=== PATIENT | male | born 1935 | race Caucasian/White ===

== ENCOUNTER 2022-03-06 13:42 | Inpatient (IN) ==
[2022-03-06] MEDS ORDERED: ASPIRIN 325 MG TABLET PO STA (14:15)
[2022-03-06] MEDS ORDERED: DILTIAZEM 25 MG/5 ML VIAL IV STA (14:16)
[2022-03-06 14:41] LABS: INR 1.1
[2022-03-06 14:43] LABS: Basophils % 0.3 % (0.0-0.8); Eosinophils % 0.3 % (0.00-10.9); Hematocrit 48.5 VOL% (42.0-52.0); Immature Granulocytes % 0.5 %; Immature Granulocytes Absolute 0.07 #; Lymphocytes # 2.2 10*3/uL (1.4-4.0); Lymphocytes % 16.8 % (21.2-54.2); Mean Corpuscular Volume 94.7 FL (87-102); Mean Platelet Volume 10.8 FL (9.6-12.0); Monocytes # 0.8 10*3/uL (0.11-0.8); Neutrophils % 76.1 % (38.7-73.9); Platelet Count 302 T/CUMM (130-400); Red Blood Count 5.12 MC/CUMM (3.8-5.5); Red Cell Distribution Width 13.5 % (9.3-17.3); White Blood Count 12.9 T/CUMM (4-12)
[2022-03-06] MEDS ORDERED: SODIUM CHLORIDE 0.9% 500 ML IV STA (14:47)
[2022-03-06 14:51] LABS: Albumin 3.3 G/DL (3.4-5.0); Bilirubin,Total 0.8 MG/DL (0.20-1.00); Calcium 9.9 MG/DL (8.5-10.1); Osmolality,Calculated 289.7 MOS/KG (273-304); Potassium 5.2 MMOL/L (3.5-5.1); Total Protein 6.9 G/DL (6.4-8.2)
[2022-03-06] MEDS: DILTIAZEM INJ 100 MG in SODIUM CHLORIDE 0.9% 100 ML IV SCH (15:13)
[2022-03-06] MEDS ORDERED: cefTRIAXone 1,000 MG in SODIUM CHLORIDE 0.9% 100 ML IV STA (15:16)
[2022-03-06] MEDS ORDERED: AZITHROMYCIN INJ 500 MG in SODIUM CHLORIDE 0.9% 250 ML IV STA (15:16)
[2022-03-06] MEDS ORDERED: ONDANSETRON 4 MG/2 ML VIAL IV PRN (15:20)
[2022-03-06] MEDS ORDERED: ACETAMINOPHEN 325 MG TABLET PO PRN (15:20)
[2022-03-06 15:41] LABS: Albumin 3.2 G/DL (3.4-5.0); Bilirubin,Total 0.7 MG/DL (0.20-1.00); Calcium 9.3 MG/DL (8.5-10.1); Osmolality,Calculated 293.4 MOS/KG (273-304); Potassium 4.8 MMOL/L (3.5-5.1)
[2022-03-06] MEDS: ENOXAPARIN 40 MG/0.4 ML SYRINGE SUBCUT SCH (16:53)
[2022-03-06] MEDS: SODIUM CHLORIDE 0.9% 1,000 ML IV SCH (16:57)
[2022-03-06] MEDS ORDERED: METOPROLOL TARTRATE 25 MG TABLET PO STA (17:06)
[2022-03-06 18:49] LABS: Free T4 (Free Thyroxine) 1.13 NG/DL (0.76-1.46); Thyroid Stimulating Hormone 1.89 uIU/ml (0.358-3.74)
[2022-03-06] MEDS: INSULIN LISPRO 100 UNIT/ML SUBCUT SCH (22:10)
[2022-03-06] MEDS: carvediloL 25 MG TABLET PO SCH (22:10)
[2022-03-06] MEDS: DOCUSATE SODIUM 100 MG CAPSULE PO SCH (22:10)
[2022-03-06] MEDS: BIMATOPROST 0.01% OPH SOLN 2.5 ML BOTTLE RIGHT EYE SCH (22:10)
[2022-03-06] MEDS: BRIMONIDINE/TIMOLOL OPH SOLN 5 ML BOTTLE RIGHT EYE SCH (22:10)
[2022-03-07 05:44] LABS: Basophils % 0.3 % (0.0-0.8); Eosinophils # 0.2 10*3/uL (0.0-0.87); Eosinophils % 1.6 % (0.00-10.9); Hematocrit 45.1 VOL% (42.0-52.0); Hemoglobin 14.7 GM/DL (14.0-18.0); Immature Granulocytes % 0.4 %; Immature Granulocytes Absolute 0.04 #; Lymphocytes # 3.3 10*3/uL (1.4-4.0); Lymphocytes % 35.2 % (21.2-54.2); Mean Corpuscular HGB Conc 32.6 GM/DL (32-36); Mean Corpuscular Volume 94.2 FL (87-102); Mean Platelet Volume 11.1 FL (9.6-12.0); Monocytes # 0.8 10*3/uL (0.11-0.8); Neutrophils % 54.5 % (38.7-73.9); Platelet Count 270 T/CUMM (130-400); Red Blood Count 4.79 MC/CUMM (3.8-5.5); Red Cell Distribution Width 13.4 % (9.3-17.3); White Blood Count 9.5 T/CUMM (4-12)
[2022-03-07 06:23] LABS: Calcium 8.6 MG/DL (8.5-10.1); Osmolality,Calculated 296.7 MOS/KG (273-304); Potassium 4.1 MMOL/L (3.5-5.1)
[2022-03-07 06:24] LABS: High Sensitive Troponin I* 252.1 ng/L (0-78)
[2022-03-07] MEDS: INSULIN LISPRO 100 UNIT/ML SUBCUT SCH ×4 (08:05→20:54)
[2022-03-07] MEDS: LOSARTAN 25 MG TABLET PO SCH (08:45)
[2022-03-07] MEDS: carvediloL 25 MG TABLET PO SCH (08:45)
[2022-03-07] MEDS: DOCUSATE SODIUM 100 MG CAPSULE PO SCH ×2 (08:45→20:47)
[2022-03-07] MEDS: DIGOXIN 0.125 MG TABLET PO SCH (08:46)
[2022-03-07] MEDS: MAGNESIUM CHLORIDE 64 MG TABLET PO SCH (08:47)
[2022-03-07] MEDS: ASPIRIN EC 81 MG TABLET PO SCH (08:47)
[2022-03-07] MEDS: PANTOPRAZOLE 40 MG TABLET PO SCH (08:47)
[2022-03-07] MEDS: DAPAGLIFLOZIN 5 MG TABLET PO SCH (08:47)
[2022-03-07] MEDS: BRIMONIDINE/TIMOLOL OPH SOLN 5 ML BOTTLE RIGHT EYE SCH ×2 (08:49→20:48)
[2022-03-07] MEDS: cefTRIAXone 1,000 MG in SODIUM CHLORIDE 0.9% 100 ML IV SCH (08:50)
[2022-03-07] MEDS: DUTASTERIDE 0.5 MG CAPSULE PO SCH (08:55)
[2022-03-07] MEDS: BIMATOPROST 0.01% OPH SOLN 2.5 ML BOTTLE RIGHT EYE SCH ×2 (09:34→20:48)
[2022-03-07] MEDS: DILTIAZEM 60 MG TABLET PO SCH ×3 (12:24→20:47)
[2022-03-07] MEDS: DILTIAZEM INJ 100 MG in SODIUM CHLORIDE 0.9% 100 ML IV SCH (14:53)
[2022-03-07] MEDS: ENOXAPARIN 40 MG/0.4 ML SYRINGE SUBCUT SCH (15:05)
[2022-03-07] MEDS: AZITHROMYCIN INJ 250 MG in SODIUM CHLORIDE 0.9% 250 ML IV SCH (15:06)
[2022-03-07] MEDS: SODIUM CHLORIDE 0.9% 1,000 ML IV SCH (16:36)
[2022-03-07] MEDS: METOPROLOL TARTRATE 25 MG TABLET PO SCH (20:47)
[2022-03-07] MEDS: ASCORBIC ACID 500 MG TABLET PO SCH (20:47)
[2022-03-07] MEDS: BRINZOLAMIDE 1% OPH SUSP 10 ML BOTTLE BOTH EYES SCH (22:21)
[2022-03-08 06:08] LABS: Albumin 2.9 G/DL (3.4-5.0); Bilirubin,Total 0.6 MG/DL (0.20-1.00); Calcium 9.1 MG/DL (8.5-10.1); Osmolality,Calculated 295.7 MOS/KG (273-304); Potassium 4.6 MMOL/L (3.5-5.1); Total Protein 5.6 G/DL (6.4-8.2)
[2022-03-08] MEDS: SODIUM CHLORIDE 0.9% 1,000 ML IV SCH (06:32)
[2022-03-08] MEDS: INSULIN LISPRO 100 UNIT/ML SUBCUT SCH ×4 (10:02→22:04)
[2022-03-08] MEDS: DILTIAZEM 60 MG TABLET PO SCH (10:04)
[2022-03-08] MEDS: METOPROLOL TARTRATE 25 MG TABLET PO SCH (10:04)
[2022-03-08] MEDS: METOPROLOL TARTRATE 50 MG TABLET PO SCH ×2 (10:10→22:06)
[2022-03-08] MEDS: DUTASTERIDE 0.5 MG CAPSULE PO SCH (10:10)
[2022-03-08] MEDS: DOCUSATE SODIUM 100 MG CAPSULE PO SCH ×2 (10:10→22:05)
[2022-03-08] MEDS: MAGNESIUM CHLORIDE 64 MG TABLET PO SCH (10:11)
[2022-03-08] MEDS: PANTOPRAZOLE 40 MG TABLET PO SCH (10:11)
[2022-03-08] MEDS: LOSARTAN 25 MG TABLET PO SCH (10:11)
[2022-03-08] MEDS: DIGOXIN 0.125 MG TABLET PO SCH (10:11)
[2022-03-08] MEDS: ASPIRIN EC 81 MG TABLET PO SCH (10:12)
[2022-03-08] MEDS: ASCORBIC ACID 500 MG TABLET PO SCH ×2 (10:12→22:05)
[2022-03-08] MEDS: cefTRIAXone 1,000 MG in SODIUM CHLORIDE 0.9% 100 ML IV SCH (10:14)
[2022-03-08] MEDS: BRINZOLAMIDE 1% OPH SUSP 10 ML BOTTLE BOTH EYES SCH ×2 (10:15→22:07)
[2022-03-08] MEDS: BRIMONIDINE/TIMOLOL OPH SOLN 5 ML BOTTLE RIGHT EYE SCH ×2 (10:16→22:08)
[2022-03-08] MEDS: DAPAGLIFLOZIN 5 MG TABLET PO SCH (10:18)
[2022-03-08] MEDS: BIMATOPROST 0.01% OPH SOLN 2.5 ML BOTTLE RIGHT EYE SCH ×2 (10:20→22:08)
[2022-03-08] MEDS: DILTIAZEM CD 120 MG CAPSULE PO SCH ×2 (12:30→22:06)
[2022-03-08] MEDS ORDERED: DILTIAZEM 90 MG TABLET PO SCH (13:00)
[2022-03-08] MEDS: DILTIAZEM INJ 100 MG in SODIUM CHLORIDE 0.9% 100 ML IV SCH (14:10)
[2022-03-08] MEDS: POLYETHYLENE GLYCOL POWDER 17 GM PACK PO PRN (14:25)
[2022-03-08] MEDS: AZITHROMYCIN INJ 250 MG in SODIUM CHLORIDE 0.9% 250 ML IV SCH (16:52)
[2022-03-08] MEDS: APIXABAN 5 MG TABLET PO SCH (22:05)
[2022-03-09] MEDS ORDERED: FUROSEMIDE 20 MG/2 ML VIAL IV ONE (00:09)
[2022-03-09] MEDS ORDERED: ALPRAZolam 0.25 MG TABLET PO ONE (00:11)
[2022-03-09 06:26] LABS: Calcium 8.9 MG/DL (8.5-10.1)
[2022-03-09] MEDS ORDERED: FLUCONAZOLE 150 MG TABLET PO ONE (07:51)
[2022-03-09 07:54] LABS: Basophils % 0.2 % (0.0-0.8); Eosinophils # 0.1 10*3/uL (0.0-0.87); Eosinophils % 0.4 % (0.00-10.9); Hematocrit 46.5 VOL% (42.0-52.0); Hemoglobin 15.3 GM/DL (14.0-18.0); Immature Granulocytes % 0.7 %; Immature Granulocytes Absolute 0.09 #; Lymphocytes # 1.8 10*3/uL (1.4-4.0); Lymphocytes % 13.4 % (21.2-54.2); Mean Corpuscular HGB Conc 32.9 GM/DL (32-36); Mean Corpuscular Volume 94.5 FL (87-102); Monocytes % 7.6 % (1.7-12.7); Neutrophils % 77.7 % (38.7-73.9); Platelet Count 282 T/CUMM (130-400); Red Blood Count 4.92 MC/CUMM (3.8-5.5); Red Cell Distribution Width 13.5 % (9.3-17.3); White Blood Count 13.5 T/CUMM (4-12)
[2022-03-09 08:24] LABS: Potassium 4.1 MMOL/L (3.5-5.1)
[2022-03-09] MEDS: POLYETHYLENE GLYCOL POWDER 17 GM PACK PO PRN (09:48)
[2022-03-09] MEDS: APIXABAN 5 MG TABLET PO SCH (09:50)
[2022-03-09] MEDS: DILTIAZEM CD 120 MG CAPSULE PO SCH (09:50)
[2022-03-09] MEDS: ASCORBIC ACID 500 MG TABLET PO SCH (09:50)
[2022-03-09] MEDS: DIGOXIN 0.125 MG TABLET PO SCH (09:51)
[2022-03-09] MEDS: LOSARTAN 25 MG TABLET PO SCH (09:52)
[2022-03-09] MEDS: PANTOPRAZOLE 40 MG TABLET PO SCH (09:52)
[2022-03-09] MEDS: DOCUSATE SODIUM 100 MG CAPSULE PO SCH (09:52)
[2022-03-09] MEDS: METOPROLOL TARTRATE 50 MG TABLET PO SCH (09:52)
[2022-03-09] MEDS: ASPIRIN EC 81 MG TABLET PO SCH (09:53)
[2022-03-09] MEDS: DUTASTERIDE 0.5 MG CAPSULE PO SCH (09:53)
[2022-03-09] MEDS: MAGNESIUM CHLORIDE 64 MG TABLET PO SCH (09:53)
[2022-03-09] MEDS: DAPAGLIFLOZIN 5 MG TABLET PO SCH (09:53)
[2022-03-09] MEDS: INSULIN LISPRO 100 UNIT/ML SUBCUT SCH (09:54)
[2022-03-09] MEDS: BRIMONIDINE/TIMOLOL OPH SOLN 5 ML BOTTLE RIGHT EYE SCH (09:54)
[2022-03-09] MEDS: BIMATOPROST 0.01% OPH SOLN 2.5 ML BOTTLE RIGHT EYE SCH (09:54)
[2022-03-09] MEDS: BRINZOLAMIDE 1% OPH SUSP 10 ML BOTTLE BOTH EYES SCH (09:56)
[2022-03-09] MEDS: cefTRIAXone 1,000 MG in SODIUM CHLORIDE 0.9% 100 ML IV SCH (09:59)
[2022-03-09 12:10] VITALS: BP 126/64
[2022-03-09] MEDS ORDERED: MICONAZOLE 2% CREAM 57 GM TUBE TOP SCH (21:00)
== END 2022-03-09 14:03 | disposition home or self-care (01) | DRG 280 ==
LOC: N.ED 13:42 → N.EDINP 15:20 → N.TELEN 18:32
PROVIDERS: ADMIT Family Medicine; ATTEND Family Medicine

== ENCOUNTER 2022-03-12 14:12 | Inpatient (IN) ==
[2022-03-12] MEDS ORDERED: ACETAMINOPHEN 325 MG TABLET PO PRN (14:21)
[2022-03-12] MEDS ORDERED: PROMETHAZINE 25 MG/1 ML VIAL IM PRN (14:22)
[2022-03-12] MEDS ORDERED: METOCLOPRAMIDE 10 MG/2 ML VIAL IV PRN (14:30)
[2022-03-12] MEDS: INSULIN LISPRO 100 UNIT/ML SUBCUT SCH ×2 (16:01→21:30)
[2022-03-12] MEDS: SODIUM CHLORIDE 0.9% 1,000 ML IV SCH (17:00)
[2022-03-12] MEDS ORDERED: hydrALAZINE 20 MG/1 ML VIAL IV PRN (18:15)
[2022-03-12] MEDS ORDERED: DOCUSATE SODIUM 100 MG CAPSULE PO SCH (21:00)
[2022-03-12] MEDS: BRIMONIDINE/TIMOLOL OPH SOLN 5 ML BOTTLE BOTH EYES SCH (21:28)
[2022-03-12] MEDS: MICONAZOLE 2% CREAM 57 GM TUBE TOP SCH (21:28)
[2022-03-12] MEDS: BRINZOLAMIDE 1% OPH SUSP 10 ML BOTTLE BOTH EYES SCH (21:28)
[2022-03-12] MEDS: BIMATOPROST 0.01% OPH SOLN 2.5 ML BOTTLE BOTH EYES SCH (21:30)
[2022-03-12] MEDS: LEVOFLOXACIN INJ 500 MG/100 ML PREMIX IV SCH (21:36)
[2022-03-12] MEDS ORDERED: TEMAZEPAM 7.5 MG CAPSULE PO PRN (22:49)
[2022-03-12] MEDS ORDERED: HYDROmorphone 1 MG/1 ML SYRINGE IV PRN (22:50)
[2022-03-13 05:30] LABS: Basophils % 0.3 % (0.0-0.8); Eosinophils # 0.1 10*3/uL (0.0-0.87); Eosinophils % 0.5 % (0.00-10.9); Hematocrit 49.4 VOL% (42.0-52.0); Hemoglobin 16.7 GM/DL (14.0-18.0); Immature Granulocytes % 0.4 %; Immature Granulocytes Absolute 0.05 #; Lymphocytes # 2.1 10*3/uL (1.4-4.0); Lymphocytes % 15.7 % (21.2-54.2); Mean Corpuscular HGB Conc 33.8 GM/DL (32-36); Mean Corpuscular Volume 93.6 FL (87-102); Monocytes # 0.9 10*3/uL (0.11-0.8); Monocytes % 6.9 % (1.7-12.7); Neutrophils % 76.2 % (38.7-73.9); Platelet Count 312 T/CUMM (130-400); Red Blood Count 5.28 MC/CUMM (3.8-5.5); Red Cell Distribution Width 13.2 % (9.3-17.3); White Blood Count 13.5 T/CUMM (4-12)
[2022-03-13] MEDS ORDERED: DILTIAZEM 50 MG/10 ML VIAL IV ONE (05:40)
[2022-03-13] MEDS ORDERED: DIGOXIN 0.5 MG/2 ML AMP IV ONE ×3 (05:43→09:07)
[2022-03-13 05:52] LABS: Albumin 2.8 G/DL (3.4-5.0); Bilirubin,Total 0.8 MG/DL (0.20-1.00); Calcium 10.1 MG/DL (8.5-10.1); Osmolality,Calculated 283.4 MOS/KG (273-304); Potassium 4.1 MMOL/L (3.5-5.1); Total Protein 6.9 G/DL (6.4-8.2)
[2022-03-13] MEDS ORDERED: DILTIAZEM INJ 100 MG in SODIUM CHLORIDE 0.9% 100 ML IV SCH (06:00)
[2022-03-13] MEDS: SODIUM CHLORIDE 0.9% 1,000 ML IV SCH (06:32)
[2022-03-13] MEDS: DILTIAZEM INJ 100 MG in SODIUM CHLORIDE 0.9% 100 ML IV SCH ×2 (06:37→12:01)
[2022-03-13] MEDS: INSULIN LISPRO 100 UNIT/ML SUBCUT SCH ×4 (09:03→20:45)
[2022-03-13] MEDS ORDERED: METOPROLOL TARTRATE 5 MG/5 ML VIAL IV ONE (09:08)
[2022-03-13] MEDS: DIGOXIN 0.5 MG/2 ML AMP IV SCH (09:30)
[2022-03-13] MEDS: PANTOPRAZOLE 40 MG VIAL IV SCH (09:42)
[2022-03-13] MEDS ORDERED: KETAMINE 500 MG/10 ML VIAL ONE (10:18)
[2022-03-13] MEDS ORDERED: BUPIVACAINE 0.5% 50 ML VIAL ONE (10:18)
[2022-03-13] MEDS ORDERED: LIDOCAINE 1% 5 ML VIAL ONE (10:18)
[2022-03-13] MEDS ORDERED: SUCCINYLCHOLINE 200 MG/10 ML VIAL ONE (10:29)
[2022-03-13] MEDS ORDERED: LIDOCAINE 2% 5 ML VIAL ONE (10:29)
[2022-03-13] MEDS ORDERED: propofoL 200 MG/20 ML VIAL IV ONE (10:29)
[2022-03-13] MEDS ORDERED: fentaNYL 100 MCG/2 ML VIAL ONE (10:29)
[2022-03-13] MEDS ORDERED: ROCURONIUM 50 MG/5 ML VIAL IV ONE (10:29)
[2022-03-13] MEDS ORDERED: ONDANSETRON 4 MG/2 ML VIAL ONE (10:33)
[2022-03-13] MEDS ORDERED: SEVOFLURANE 1 UNIT/15 MINUTE INH ONE (10:33)
[2022-03-13] MEDS ORDERED: SUGAMMADEX 200 MG/2 ML VIAL IV ONE ×2 (11:32→11:40)
[2022-03-13] MEDS ORDERED: ALBUTEROL/IPRATROPIUM 3 ML NEB RESP TX PRN (11:44)
[2022-03-13] MEDS ORDERED: ONDANSETRON 4 MG/2 ML VIAL IV PRN (11:44)
[2022-03-13] MEDS ORDERED: HYDROmorphone 1 MG/1 ML SYRINGE IV PRN (11:44)
[2022-03-13] MEDS: LACTATED RINGERS 1,000 ML IV SCH ×2 (12:00→20:55)
[2022-03-13 12:18] LABS: Bilirubin,Urine Negative (Negative); Blood, Urine Negative (Negative); Glucose,Urine (UA) >=500 mg/dL (Negative); Ketones,Urine 80 mg/dL (Negative); Mucus,Urine Few /LPF (Occasional); Nitrite,Urine Negative (Negative); Protein,Urine Negative (Negative); RBC,Urine 1 /HPF (0-4); Urine Appearance Slightly Hazy (Clear); Urine Color Yellow (Yellow); Urine Specific Gravity 1.038 (1.001-1.035); Urine Urobilinogen < 2.0 eU/dL (<2.0)
[2022-03-13] MEDS: BRIMONIDINE/TIMOLOL OPH SOLN 5 ML BOTTLE BOTH EYES SCH ×2 (15:55→20:55)
[2022-03-13] MEDS: BRINZOLAMIDE 1% OPH SUSP 10 ML BOTTLE BOTH EYES SCH ×2 (15:55→20:55)
[2022-03-13] MEDS: BIMATOPROST 0.01% OPH SOLN 2.5 ML BOTTLE BOTH EYES SCH (20:55)
[2022-03-13] MEDS: MICONAZOLE 2% CREAM 57 GM TUBE TOP SCH (20:55)
[2022-03-13] MEDS: LEVOFLOXACIN INJ 500 MG/100 ML PREMIX IV SCH (20:55)
[2022-03-13] MEDS: HYDROmorphone 1 MG/1 ML SYRINGE IV PRN (21:05)
[2022-03-14] MEDS: HYDROmorphone 1 MG/1 ML SYRINGE IV PRN ×3 (01:25→23:30)
[2022-03-14] MEDS: DILTIAZEM INJ 100 MG in SODIUM CHLORIDE 0.9% 100 ML IV SCH ×3 (05:38→23:31)
[2022-03-14 06:24] LABS: Basophils % 0.2 % (0.0-0.8); Eosinophils # 0.4 10*3/uL (0.0-0.87); Eosinophils % 3.1 % (0.00-10.9); Hematocrit 48.3 VOL% (42.0-52.0); Hemoglobin 15.6 GM/DL (14.0-18.0); Immature Granulocytes % 0.6 %; Immature Granulocytes Absolute 0.08 #; Lymphocytes # 2.2 10*3/uL (1.4-4.0); Lymphocytes % 17.2 % (21.2-54.2); Mean Corpuscular HGB Conc 32.3 GM/DL (32-36); Mean Platelet Volume 10.8 FL (9.6-12.0); Monocytes % 8.1 % (1.7-12.7); Neutrophils % 70.8 % (38.7-73.9); Platelet Count 314 T/CUMM (130-400); Red Blood Count 4.98 MC/CUMM (3.8-5.5); Red Cell Distribution Width 13.2 % (9.3-17.3); White Blood Count 12.7 T/CUMM (4-12)
[2022-03-14 06:55] LABS: Calcium 9.2 MG/DL (8.5-10.1); Potassium 4.3 MMOL/L (3.5-5.1)
[2022-03-14] MEDS: PANTOPRAZOLE 40 MG VIAL IV SCH (08:51)
[2022-03-14] MEDS: DIGOXIN 0.5 MG/2 ML AMP IV SCH (08:52)
[2022-03-14] MEDS: BRINZOLAMIDE 1% OPH SUSP 10 ML BOTTLE BOTH EYES SCH ×2 (08:54→22:03)
[2022-03-14] MEDS: BRIMONIDINE/TIMOLOL OPH SOLN 5 ML BOTTLE BOTH EYES SCH ×2 (08:55→22:04)
[2022-03-14] MEDS: INSULIN LISPRO 100 UNIT/ML SUBCUT SCH ×4 (08:57→21:52)
[2022-03-14] MEDS: METOPROLOL TARTRATE 25 MG TABLET PO SCH ×2 (12:05→21:52)
[2022-03-14] MEDS: DILTIAZEM 30 MG TABLET PO SCH ×4 (12:05→21:51)
[2022-03-14] MEDS: LACTATED RINGERS 1,000 ML IV SCH ×3 (14:43→23:32)
[2022-03-14] MEDS: LEVOFLOXACIN INJ 500 MG/100 ML PREMIX IV SCH (21:56)
[2022-03-14] MEDS: MICONAZOLE 2% CREAM 57 GM TUBE TOP SCH (22:04)
[2022-03-14] MEDS: BIMATOPROST 0.01% OPH SOLN 2.5 ML BOTTLE BOTH EYES SCH (22:07)
[2022-03-15 04:21] LABS: Basophils % 0.4 % (0.0-0.8); Eosinophils # 0.3 10*3/uL (0.0-0.87); Eosinophils % 2.6 % (0.00-10.9); Hematocrit 46.5 VOL% (42.0-52.0); Immature Granulocytes % 0.5 %; Immature Granulocytes Absolute 0.05 #; Lymphocytes # 1.7 10*3/uL (1.4-4.0); Lymphocytes % 16.1 % (21.2-54.2); Mean Corpuscular HGB Conc 32.3 GM/DL (32-36); Mean Corpuscular Volume 94.9 FL (87-102); Mean Platelet Volume 11.3 FL (9.6-12.0); Monocytes # 0.9 10*3/uL (0.11-0.8); Monocytes % 8.4 % (1.7-12.7); Platelet Count 284 T/CUMM (130-400); Red Cell Distribution Width 12.8 % (9.3-17.3); White Blood Count 10.5 T/CUMM (4-12)
[2022-03-15 05:04] LABS: Calcium 8.9 MG/DL (8.5-10.1); Osmolality,Calculated 282.4 MOS/KG (273-304); Potassium 4.2 MMOL/L (3.5-5.1)
[2022-03-15] MEDS: DILTIAZEM INJ 100 MG in SODIUM CHLORIDE 0.9% 100 ML IV SCH ×3 (06:37→23:20)
[2022-03-15] MEDS: LACTATED RINGERS 1,000 ML IV SCH ×3 (06:46→23:20)
[2022-03-15] MEDS: INSULIN LISPRO 100 UNIT/ML SUBCUT SCH ×4 (08:48→21:15)
[2022-03-15] MEDS: PANTOPRAZOLE 40 MG VIAL IV SCH (08:49)
[2022-03-15] MEDS: DILTIAZEM 30 MG TABLET PO SCH (08:49)
[2022-03-15] MEDS: METOPROLOL TARTRATE 25 MG TABLET PO SCH (08:50)
[2022-03-15] MEDS: DIGOXIN 0.5 MG/2 ML AMP IV SCH (08:52)
[2022-03-15] MEDS: BRIMONIDINE/TIMOLOL OPH SOLN 5 ML BOTTLE BOTH EYES SCH ×2 (09:06→20:52)
[2022-03-15] MEDS: BRINZOLAMIDE 1% OPH SUSP 10 ML BOTTLE BOTH EYES SCH ×2 (09:06→20:51)
[2022-03-15] MEDS ORDERED: METOPROLOL TARTRATE 25 MG TABLET PO ONE (10:12)
[2022-03-15] MEDS: APIXABAN 5 MG TABLET PO SCH ×2 (11:51→21:16)
[2022-03-15] MEDS: MICONAZOLE 2% CREAM 57 GM TUBE TOP SCH (20:52)
[2022-03-15] MEDS: BIMATOPROST 0.01% OPH SOLN 2.5 ML BOTTLE BOTH EYES SCH (21:05)
[2022-03-15] MEDS: HYDROmorphone 1 MG/1 ML SYRINGE IV PRN (21:15)
[2022-03-15] MEDS: METOPROLOL TARTRATE 50 MG TABLET PO SCH (21:16)
[2022-03-15] MEDS: DILTIAZEM CD 120 MG CAPSULE PO SCH (21:16)
[2022-03-15] MEDS: LEVOFLOXACIN INJ 500 MG/100 ML PREMIX IV SCH (21:16)
[2022-03-16] MEDS: DILTIAZEM INJ 100 MG in SODIUM CHLORIDE 0.9% 100 ML IV SCH ×2 (05:19→16:30)
[2022-03-16 05:25] LABS: Basophils % 0.3 % (0.0-0.8); Eosinophils # 0.4 10*3/uL (0.0-0.87); Eosinophils % 3.2 % (0.00-10.9); Hematocrit 44.3 VOL% (42.0-52.0); Hemoglobin 14.6 GM/DL (14.0-18.0); Immature Granulocytes % 0.5 %; Immature Granulocytes Absolute 0.06 #; Lymphocytes # 1.7 10*3/uL (1.4-4.0); Mean Corpuscular Volume 94.3 FL (87-102); Mean Platelet Volume 10.5 FL (9.6-12.0); Monocytes # 1.2 10*3/uL (0.11-0.8); Monocytes % 9.8 % (1.7-12.7); Neutrophils % 72.2 % (38.7-73.9); Platelet Count 283 T/CUMM (130-400); Red Cell Distribution Width 12.8 % (9.3-17.3); White Blood Count 12.5 T/CUMM (4-12)
[2022-03-16 05:45] LABS: Calcium 8.6 MG/DL (8.5-10.1); Osmolality,Calculated 289.1 MOS/KG (273-304); Potassium 3.6 MMOL/L (3.5-5.1)
[2022-03-16] MEDS: LACTATED RINGERS 1,000 ML IV SCH ×3 (06:28→23:12)
[2022-03-16] MEDS ORDERED: POTASSIUM CHLORIDE 20 MEQ TABLET PO ONE (08:38)
[2022-03-16] MEDS: APIXABAN 5 MG TABLET PO SCH ×2 (08:48→21:44)
[2022-03-16] MEDS: DILTIAZEM CD 120 MG CAPSULE PO SCH ×2 (08:49→21:45)
[2022-03-16] MEDS: METOPROLOL TARTRATE 50 MG TABLET PO SCH (08:49)
[2022-03-16] MEDS: INSULIN LISPRO 100 UNIT/ML SUBCUT SCH ×4 (08:50→21:44)
[2022-03-16] MEDS ORDERED: MAGNESIUM SULF RIDER 2 GM/50 ML PREMIX IV ONE (08:51)
[2022-03-16] MEDS: PANTOPRAZOLE 40 MG VIAL IV SCH (08:51)
[2022-03-16] MEDS: DIGOXIN 0.5 MG/2 ML AMP IV SCH (08:52)
[2022-03-16] MEDS: BRINZOLAMIDE 1% OPH SUSP 10 ML BOTTLE BOTH EYES SCH ×2 (08:52→22:43)
[2022-03-16] MEDS: BRIMONIDINE/TIMOLOL OPH SOLN 5 ML BOTTLE BOTH EYES SCH ×2 (08:53→22:43)
[2022-03-16] MEDS ORDERED: SODIUM CHLORIDE 0.9% 1,000 ML IV SCH (09:30)
[2022-03-16] MEDS: METOPROLOL TARTRATE 25 MG TABLET PO SCH ×2 (10:23→21:45)
[2022-03-16] MEDS: ASCORBIC ACID 500 MG TABLET PO SCH ×2 (10:23→21:44)
[2022-03-16] MEDS ORDERED: ROSUVASTATIN 10 MG TABLET PO SCH (21:00)
[2022-03-16] MEDS: LEVOFLOXACIN INJ 500 MG/100 ML PREMIX IV SCH (21:43)
[2022-03-16] MEDS: BIMATOPROST 0.01% OPH SOLN 2.5 ML BOTTLE BOTH EYES SCH (22:43)
[2022-03-16] MEDS: MICONAZOLE 2% CREAM 57 GM TUBE TOP SCH (22:43)
[2022-03-17 05:34] LABS: Basophils % 0.4 % (0.0-0.8); Eosinophils # 0.4 10*3/uL (0.0-0.87); Eosinophils % 3.5 % (0.00-10.9); Hematocrit 44.5 VOL% (42.0-52.0); Hemoglobin 14.3 GM/DL (14.0-18.0); Immature Granulocytes % 0.6 %; Immature Granulocytes Absolute 0.06 #; Lymphocytes # 1.6 10*3/uL (1.4-4.0); Lymphocytes % 16.4 % (21.2-54.2); Mean Corpuscular HGB Conc 32.1 GM/DL (32-36); Mean Corpuscular Volume 96.9 FL (87-102); Mean Platelet Volume 11.3 FL (9.6-12.0); Monocytes # 0.9 10*3/uL (0.11-0.8); Monocytes % 9.1 % (1.7-12.7); Platelet Count 163 T/CUMM (130-400); Red Blood Count 4.59 MC/CUMM (3.8-5.5); Red Cell Distribution Width 13.2 % (9.3-17.3)
[2022-03-17] MEDS: DILTIAZEM INJ 100 MG in SODIUM CHLORIDE 0.9% 100 ML IV SCH (05:52)
[2022-03-17 06:05] LABS: Calcium 8.3 MG/DL (8.5-10.1); Osmolality,Calculated 283.4 MOS/KG (273-304); Potassium 4.1 MMOL/L (3.5-5.1)
[2022-03-17] MEDS ORDERED: DIGOXIN 0.5 MG/2 ML AMP IV ONE (06:30)
[2022-03-17] MEDS ORDERED: SODIUM CHLORIDE 0.9% 1,000 ML IV SCH (08:00)
[2022-03-17] MEDS ORDERED: LIDOCAINE 2% 5 ML VIAL ONE (08:57)
[2022-03-17] MEDS ORDERED: propofoL 200 MG/20 ML VIAL IV ONE (08:57)
[2022-03-17] MEDS: BRINZOLAMIDE 1% OPH SUSP 10 ML BOTTLE BOTH EYES SCH ×2 (10:02→21:39)
[2022-03-17] MEDS: BRIMONIDINE/TIMOLOL OPH SOLN 5 ML BOTTLE BOTH EYES SCH ×2 (10:02→21:37)
[2022-03-17] MEDS: INSULIN LISPRO 100 UNIT/ML SUBCUT SCH ×4 (10:28→21:39)
[2022-03-17] MEDS: DILTIAZEM CD 120 MG CAPSULE PO SCH ×2 (11:17→21:38)
[2022-03-17] MEDS: ASCORBIC ACID 500 MG TABLET PO SCH ×2 (11:17→21:38)
[2022-03-17] MEDS: METOPROLOL TARTRATE 25 MG TABLET PO SCH ×3 (11:18→21:38)
[2022-03-17] MEDS: APIXABAN 5 MG TABLET PO SCH ×2 (11:18→21:39)
[2022-03-17] MEDS: ASPIRIN EC 81 MG TABLET PO SCH (11:18)
[2022-03-17] MEDS: EZETIMIBE 10 MG TABLET PO SCH (11:18)
[2022-03-17] MEDS: DIGOXIN 0.5 MG/2 ML AMP IV SCH (11:19)
[2022-03-17] MEDS: PANTOPRAZOLE 40 MG VIAL IV SCH (11:19)
[2022-03-17] MEDS: LACTATED RINGERS 1,000 ML IV SCH ×2 (11:20→21:49)
[2022-03-17] MEDS: BIMATOPROST 0.01% OPH SOLN 2.5 ML BOTTLE BOTH EYES SCH (21:37)
[2022-03-17] MEDS: LEVOFLOXACIN INJ 500 MG/100 ML PREMIX IV SCH (21:38)
[2022-03-17] MEDS: MICONAZOLE 2% CREAM 57 GM TUBE TOP SCH (21:40)
[2022-03-17] MEDS: HYDROmorphone 1 MG/1 ML SYRINGE IV PRN (21:51)
[2022-03-18] MEDS: LACTATED RINGERS 1,000 ML IV SCH (01:32)
[2022-03-18 05:17] LABS: Basophils % 0.4 % (0.0-0.8); Eosinophils # 0.5 10*3/uL (0.0-0.87); Eosinophils % 4.5 % (0.00-10.9); Hematocrit 43.3 VOL% (42.0-52.0); Hemoglobin 14.3 GM/DL (14.0-18.0); Immature Granulocytes % 0.6 %; Immature Granulocytes Absolute 0.06 #; Lymphocytes # 2.2 10*3/uL (1.4-4.0); Lymphocytes % 21.1 % (21.2-54.2); Mean Corpuscular Volume 93.5 FL (87-102); Mean Platelet Volume 10.1 FL (9.6-12.0); Monocytes # 1.1 10*3/uL (0.11-0.8); Monocytes % 10.1 % (1.7-12.7); Neutrophils % 63.3 % (38.7-73.9); Platelet Count 279 T/CUMM (130-400); Red Blood Count 4.63 MC/CUMM (3.8-5.5); White Blood Count 10.6 T/CUMM (4-12)
[2022-03-18] MEDS: DILTIAZEM INJ 100 MG in SODIUM CHLORIDE 0.9% 100 ML IV SCH (05:17)
[2022-03-18 05:36] LABS: Calcium 8.7 MG/DL (8.5-10.1); Osmolality,Calculated 281.5 MOS/KG (273-304); Potassium 3.7 MMOL/L (3.5-5.1)
[2022-03-18] MEDS ORDERED: AMIODARONE 200 MG TABLET PO SCH (09:00)
[2022-03-18] MEDS: ASCORBIC ACID 500 MG TABLET PO SCH (09:51)
[2022-03-18] MEDS: EZETIMIBE 10 MG TABLET PO SCH (09:51)
[2022-03-18] MEDS: APIXABAN 5 MG TABLET PO SCH (09:51)
[2022-03-18] MEDS: ASPIRIN EC 81 MG TABLET PO SCH (09:51)
[2022-03-18] MEDS: DILTIAZEM CD 120 MG CAPSULE PO SCH (09:52)
[2022-03-18] MEDS: METOPROLOL TARTRATE 25 MG TABLET PO SCH (09:52)
[2022-03-18] MEDS: INSULIN LISPRO 100 UNIT/ML SUBCUT SCH (09:53)
[2022-03-18] MEDS: BRINZOLAMIDE 1% OPH SUSP 10 ML BOTTLE BOTH EYES SCH (09:54)
[2022-03-18] MEDS: BRIMONIDINE/TIMOLOL OPH SOLN 5 ML BOTTLE BOTH EYES SCH (09:54)
[2022-03-18] MEDS: PANTOPRAZOLE 40 MG VIAL IV SCH (09:55)
[2022-03-18 11:32] VITALS: BP 122/82
== END 2022-03-18 11:58 | disposition home health service (06) | DRG 353 ==
LOC: N.3E → N.TELEN 03-13 05:51
PROVIDERS: ADMIT Family Medicine; ATTEND Family Medicine